=== PATIENT | female | born 1965 | race Caucasian/White ===

== ENCOUNTER → 2022-02-25 12:13 | Outpatient (BNVA) | payer BC, SELFPAY | PROVIDERS: Visit Provider Nurse Practitioner Family | DX: J32.0 Chronic maxillary sinusitis (principal); H66.91 Otitis media, unspecified, right ear; H60.91 Unspecified otitis externa, right ear; N95.1 Menopausal and female climacteric states; R73.03 Prediabetes; I10 Essential (primary) hypertension; E66.9 Obesity, unspecified; R05.9 Cough, unspecified | CPT/HCPCS: 80053; 80061; 82306; 83036; 84443 ==

== ENCOUNTER → 2022-06-03 11:48 | Outpatient (BNVA) | payer BC, SELFPAY | PROVIDERS: Visit Provider Nurse Practitioner Family | DX: I10 Essential (primary) hypertension (principal); R73.03 Prediabetes; E55.9 Vitamin D deficiency, unspecified; R60.9 Edema, unspecified; R05.9 Cough, unspecified | CPT/HCPCS: 80053; 80061; 82306; 83036 ==

== ENCOUNTER → 2023-08-08 17:28 | Outpatient (BNVA) | payer SELFPAY | PROVIDERS: Visit Provider Emergency Medicine | DX: M25.562 Pain in left knee (principal) | CPT/HCPCS: 73562 ==

== ENCOUNTER 2024-01-17 14:53 | Emergency (ER) | payer SELFPAY ==
[2024-01-17 14:55] VITALS: BP 171/83; PULSE 77; RESP 15; TEMP 36.6; O2SAT 100; BMI 26.3
--- NOTE | 2024-01-17 15:03 | USCV_ITS ---
Connie Craig Age: 58 Gender: F : 1965 Exam Date: 01/17/2024 15:15 Ordering Phys: Leonel Gaona Technologist: [facility] Exam Location: [facility] [place] Indication: rt leg swelling PROCEDURES: Venous duplex imaging was performed in only the left lower extremity. The following venous structures were evaluated: common femoral vein, profunda vein, proximal portion of the greater saphenous vein, superficial femoral vein, and the popliteal vein. In addition, the posterior tibial and peroneal trunk were evaluated. FINDINGS: Normal 2-D Doppler and augmentation and compressibility throughout the lower extremity venous structures. Additional imaging through the proximal calf veins also reveals no thrombus. Limited evaluation of the greater saphenous vein is patent with no thrombus. CONCLUSIONS No DVT right lower extremity. Dr. Kimberly Hines DO (Electronically Signed) Final Date: 17 January 2024 16:15 S
--- NOTE | 2024-01-17 15:10 | W.ED.EXTPRO ---
HPI - Extremity Problem General: Chief complaint: Extremity Problem,Nontraumatic Stated complaint: urgent care sent over for ultrasound right leg Time Seen by Provider: 01/17/24 15:02 Source: patient Mode of arrival: ambulatory Limitations: no limitations History of Present Illness: Patient is a 58-year-old female presenting to the emergency department with right lower extremity pain and swelling over the past 10 days. On 01/06 she states she fell and injured her right knee and right hip, and since then has had slow steady increasing pain, and symptoms primarily to her calf and lower leg. Pain worse with walking. Denies any pertinent medical history, no personal history of blood clots. She is not short of breath, does note a mild cough that she thinks is because she has been stressed about the pain. She notes she chronically has swelling, but her right is much worse than the left. No recent history of long travels or significant immobilization. No fevers, chest pain, palpitations, pain out of proportion to exam, or other concerning historical factors at this time. Her vitals are stable, blood pressure elevated, does have a history of hypertension on amlodipine and hydrochlorothiazide. MD Complaint: extremity pain and extremity swelling Onset (ago): day(s) (10) Pain Consistency: constant Location: right and lower extremity Exacerbating factors: range of motion and weight bearing Associated symptoms: Deny chest pain, fever(s) or rash Related Data Previous Rx's Medication Instructions Recorded hydrochlorothiazide 25 mg tablet 25 mg PO DAILY PRN edema #90 tabs 04/13/23 amlodipine 10 mg tablet 10 mg PO DAILY 90 days #90 tabs 08/25/23 Allergies Allergy/AdvReac Type Severity Reaction Status Date / Time azithromycin [From Zithromax] Allergy Severe ALGY-Swell Verified 01/17/24 15:02 Lip/Tongue/Throat Review of Systems General: Reports: 10 or more systems reviewed and unremarkable except in HPI and below Const: Denies: fever(s), chills or fatigue Eyes: Denies: change in vision ENMT: Denies: throat pain, ear or mastoid pain or nasal discharge Card: Denies: chest pain, palpitations, swelling of feet/ankles or lightheadedness Resp: Denies: dyspnea, productive cough or wheezing GI: Denies: abdominal pain, nausea, vomiting, diarrhea or constipation : Denies: flank pain, difficulty voiding, dysuria or urinary frequency Musc: Reports: extremity pain (Right lower) and extremity swelling (Right lower); Denies: neck pain, back pain or joint pain Skin/Breast: Denies: rash Neuro: Denies: headache(s), numbness in extremities or weakness in extremities PFSH ED PFSH: Medical History Pain and swelling of right lower leg Social History Smoking and tobacco/nicotine status: never used tobacco/nicotine Physical Exam Const: COMMON NORMALS: no acute distress, patient oriented x3 and no limitations GENERAL APPEARANCE: cooperative, comfortable and well developed ORIENTATION/CONSCIOUSNESS: Yes awake, Yes oriented to person, Yes oriented to place and Yes oriented to time HENMT: COMMON NORMALS: normocephalic, atraumatic and hearing grossly normal bilaterally HEAD & SCALP: normocephalic and atraumatic Eye: COMMON NORMALS: Equal, round and reactive pupils present, EOMs intact bilaterally and conjunctivae normal CONJUNCTIVA: Yes conjunctivae normal PUPIL: Yes Equal, round and reactive pupils present Neck/C-Spine: COMMON NORMALS: full ROM, supple and no JVD Resp: COMMON NORMALS: normal respiratory effort, No retractions, No use of accessory muscles and clear to auscultation bilaterally AUSCULTATION: clear to auscultation bilaterally Cardio: COMMON NORMALS: no JVD, regular rate, regular rhythm, No clicks present (Cardio), No murmurs present (Cardio) and No rub (Cardio) RATE: regular rate RHYTHM: regular rhythm Extremity: NARRATIVE EXTREMITY EXAM: Positive Homans' sign on the right. There is tenderness to palpation to the right popliteal space as well as to the right calf, and it is somewhat increased in swelling compared to her left lower extremity. Her dorsalis pedis, though weak, is palpable. 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 No palpable cord behind the right knee. There are no overlying erythema or other skin changes. Normal capillary refill. No signs of trauma. There is quite a bit of chronic ecchymosis to the right buttock region with a palpable hematoma Neuro: COMMON NORMALS: patient oriented x3, moves all extremities, no focal motor deficits and no sensory deficits noted SENSORIUM/ORIENTATION: Yes oriented to person, Yes oriented to place and Yes oriented to time Psych: COMMON NORMALS: mental status grossly normal and Normal thought process present THOUGHT PROCESS: Normal thought process present Skin: COMMON NORMALS: no rashes or lesions noted GENERAL SKIN EXAM: no rashes or lesions noted Course Vital Signs: Vital signs: Vital Signs Temperature 97.8 F 01/17/24 14:55 Pulse Rate 77 01/17/24 14:55 Respiratory Rate 15 01/17/24 14:55 Blood Pressure 171/83 01/17/24 14:55 Pulse Oximetry 100 01/17/24 14:55 Oxygen Delivery Me thod Room Air 01/17/24 14:55 MDM - Extremity (Nontraumatic) Medical Decision Making Patient presented with 10 days of worsening pain and swelling to right lower extremity. Was a positive Homans' sign and there was some pain to the right calf, however ultrasound negative for any DVT. Initial injury was a fall directly onto her right buttock, examination of this area showed quite a bit of swelling and a palpable hematoma that patient states has been improving but has still been painful. Due to the extent of this injury, very likely she could have a musculoskeletal injury of the right calf/lower leg area as well, although other differential diagnosis includes lymphedema, lipedema, ruptured Youngblood's cyst, or chronic venous insufficiency. Gave patient strict return precautions such as if she is not seeing improvement of her pain or swelling in a week's time, or if he gets worsening time to return to the emergency department, we will obtain labs and further imaging. There was no pain out of proportion on physical examination, I have no concern for compartment syndrome. Proper return precautions given and all of the questions and concerns addressed at this time. XR interpretation done by ED provider, pending radiology final review ED provider radiology interpretation(s): Ultrasound right lower extremity showing no signs of a deep vein thrombosis Discharge Plan Discharge Patient Disposition: Home Clinical Impression: Right leg swelling Condition: Stable Prescriptions: No Action hydrochlorothiazide 25 mg tablet 25 mg PO DAILY PRN (Reason: edema) Qty: 90 0RF amlodipine 10 mg tablet 10 mg PO DAILY 90 Days Qty: 90 1RF Discharge Orders: Discharge ED (Routine); Ordered 01/17/24 Ordered By: Leonel Gaona Patient Instructions: Leg Edema (ED) Activity Restrictions/Additional Instructions: See attached patient instructions for further education. Close follow-up with your primary care provider next week for general reevaluation. Your ultrasound today was negative for any clot, please note that if your pain or swelling gets any worse, or does not start to improve after a week to return to the emergency department for reevaluation. Coding Level of Care Code ED Supervisor [employer] for [facility]
[2024-01-17 15:48] VITALS: BP 139/74; PULSE 86; O2SAT 95
== END 2024-01-17 15:50 | disposition home or self-care (01) ==
PROVIDERS: Emergency Provider Physician Assistant
DX: M79.89 Other specified soft tissue disorders (principal)
CPT/HCPCS: 93971; 99284